=== PATIENT | male | born 1980 | race Caucasian/White ===

== ENCOUNTER 2021-01-30 20:23 | Emergency (ER) | payer OTHER ==
[2021-01-30 20:30] VITALS: TEMP 97.9
[2021-01-30] MEDS ORDERED: SODIUM CHLORIDE 0.9% 500 ML 500 ML IV STA (20:58)
[2021-01-30] MEDS ORDERED: methylPREDNISolone SOD SUCCI 125 MG/2 ML VIAL IV STA (20:58)
[2021-01-30] MEDS ORDERED: diphenhydrAMINE 50 MG/ML 1 ML VIAL IVP STA (20:58)
[2021-01-30] MEDS ORDERED: FAMOTIDINE 20 MG/2 ML VIAL IV STA (20:58)
--- NOTE | 2021-01-30 21:13 | ED ---
Skin/Abscess/FB HPI - General Chief complaint: Skin/Abscess/Foreign Body Stated complaint: Swollen Foot, Rash Time Seen by Provider: 01/30/21 20:43 Source: patient Mode of arrival: ambulatory Limitations: no limitations - History of Present Illness Initial comments: Patient is a 40 -year-old male here with complaints of left foot pain, swelling and redness. He is also complaining of a generalized rash that appeared today as well. Patient states he noticed a little bit of redness of his toes and thought he might be developing athletes foot so he was using topical spray. This started about 5 days ago. Patient states since then it has progressed into most of his toes and redness on the top of his foot. Patient states he saw his doctor today and they wanted him to start her on some antibiotics. Patient states over the next few hours he was doing work around his house and then started having some itchiness of his neck. Patient started developing a rash on his torso, neck, back and arms. He states he called his doctor back and he was reexamined a few hours later, he was given Benadryl and Keflex. They instructed him that if the rash was getting worse to come to the ER. Patient states over the past couple hours they feel like the rash has been getting worse over his torso and decided to be seen. He denies any trouble breathing, no shortness of breath, no wheezing. He denies any nausea or vomiting. He states he has no idea what he could be ALLERGIC to. He denies any fevers or chills. He denies any significant pain of his left foot. He has no further complaints at this time. Upon arrival to the ER, his vital signs are stable. - Related Data Home Medications Medication Instructions Recorded Confirmed No Known Home Medications 01/30/21 01/30/21 Allergies Allergy/AdvReac Type Severity Reaction Status Date / Time acetaminophen Allergy Unknown Verified 01/30/21 21:30 [From Darvocet-N] propoxyphene Allergy Unknown Verified 01/30/21 21:30 [From Darvocet-N] Review of Systems ROS Statement: Those systems with pertinent positive or pertinent negative responses have been documented in the HPI. ROS Other: All systems not noted in ROS Statement are negative. Past Medical History Past Medical History: No Reported History History of Any Multi-Drug Resistant Organisms: None Reported Past Surgical History: Appendectomy, Orthopedic Surgery Additional Past Surgical History / Comment(s): skin graft, lt knee Past Psychological History: No Psychological Hx Reported Smoking Status: Former smoker Past Alcohol Use History: None Reported Past Drug Use History: None Reported General Exam - General Exam Comments Initial Comments: GENERAL: Patient is well-developed and well-nourished. Patient is nontoxic and in no acute distress. HEAD: Atraumatic, normocephalic. EYES: Pupils equal round and reactive to light, extraocular movements intact, sclera anicteric, conjunctiva are normal. Eyelids were unremarkable. ENT: TMs normal, nares patent, oropharynx clear without exudates. Moist mucous membranes. NECK: Normal range of motion, supple without lymphadenopathy or JVD. LUNGS: Unlabored respirations. Breath sounds clear to auscultation bilaterally and equal. No wheezes rales or rhonchi. HEART: Regular rate and rhythm without murmurs, rubs or gallops. ABDOMEN: Soft, nontender, normoactive bowel sounds. No guarding, no rebound. No masses appreciated. : Deferred MUSCULOSKELETAL: Normal extremities with adequate strength and normal range of motion, no pitting or edema. No clubbing or cyanosis. NEUROLOGICAL: Patient is alert and oriented x 3. Motor and sensory are also intact. Cranial nerves II through XII grossly intact. Symmetrical smile. Normal speech, normal gait. PSYCH: Normal mood, normal affect. SKIN: Warm, Dry, normal turgor. Patient has a generalized macular papular rash on his torso, neck, arms. This is mildly pruritic, consistent with an ALLERGIC rash. Patient also has some mild cellulitis on the dorsal aspect of his left foot extending into 3 of his toes. No pain with palpation, no warmth. There is some mild swelling to his left foot as well. Limitations: no limitations Course Vital Signs 01/30/21 01/30/21 20:26 21:57 Temperature 97.9 F Pulse Rate 69 66 Respiratory 20 18 Rate Blood Pressure 125/84 128/86 O2 Sat by Pulse 98 100 Oximetry Medical Decision Making - Medical Decision Making Patient is a 40-year-old male here with concerns of a possible infection of the left foot. He is also started having a generalized rash on his torso and arms. He did see his PCP today that started him on Keflex 250 mg 4 times a day for the cellulitis, he also started him on prednisone for the rash. Patient labs were checked today including coags which were all normal. I did give patient IV Benadryl, steroids, Pepcid. He did report improvement in his rash. I discussed the patient he needs to continue with the Keflex for the left foot cellulitis, as well as oral steroids for the rash. He may take Benadryl at nighttime for any further itching. He is in agreement with this plan of care. He is stable for discharge. Return parameters were discussed with the patient he verbalizes understanding. Case discussed with Dr. Linda. - Lab Data Result diagrams: 01/30/21 21:08 01/30/21 21:08 Lab Results 01/30/21 01/30/21 01/30/21 Range/Units 21:08 21:08 21:08 WBC 5.8 (3.8-10.6) k/uL RBC 4.52 (4.30-5.90) m/uL Hgb 14.1 (13.0-17.5) gm/dL Hct 40.8 (39.0-53.0) % MCV 90.3 (80.0-100.0) fL MCH 31.1 (25.0-35.0) pg MCHC 34.5 (31.0-37.0) g/dL RDW 12.5 (11.5-15.5) % Plt Count 153 (150-450) k/uL MPV 7.7 Neutrophils % 61 % Lymphocytes % 25 % Monocytes % 7 % Eosinophils % 4 % Basophils % 1 % Neutrophils # 3.5 (1.3-7.7) k/uL Lymphocytes # 1.5 (1.0-4.8) k/uL Monocytes # 0.4 (0-1.0) k/uL Eosinophils # 0.2 (0-0.7) k/uL Basophils # 0.0 (0-0.2) k/uL PT 10.5 (9.0-12.0) sec INR 1.0 (<1.2) APTT 22.4 (22.0-30.0) sec Sodium 140 (137-145) mmol/L Potassium 4.2 (3.5-5.1) mmol/L Chloride 104 (98-107) mmol/L Carbon Dioxide 30 (22-30) mmol/L Anion Gap 6 mmol/L BUN 21 H (9-20) mg/dL Creatinine 1.01 (0.66-1.25) mg/dL Est GFR (CKD-EPI)AfAm >90 (>60 ml/min/1.73 sqM) Est GFR (CKD-EPI)NonAf >90 (>60 ml/min/1.73 sqM) Glucose 83 (74-99) mg/dL Calcium 9.4 (8.4-10.2) mg/dL Total Bilirubin 0.3 (0.2-1.3) mg/dL AST 25 (17-59) U/L ALT 24 (4-49) U/L Alkaline Phosphatase 52 (38-126) U/L C-Reactive Protein 10.5 H (<10.0) mg/L Total Protein 7.0 (6.3-8.2) g/dL Albumin 4.3 (3.5-5.0) g/dL Disposition Clinical Impression: Cellulitis of foot, left, Rash due to allergy Disposition: HOME SELF-CARE Condition: Stable Instructions (If sedation given, give patient instructions): Cellulitis (ED) Additional Instructions: Please return to the Emergency Department if symptoms worsen or any other concerns. Continue with Keflex for the cellulitis on the left foot. Start the oral steroids tomorrow for the rash, may take Benadryl at nighttime. Follow-up with your regular doctor. Is patient prescribed a controlled substance at d/c from ED?: No Referrals: Pascual Adams DO [Primary Care Provider] - 1-2 days
[2021-01-30 21:15] LABS: Basophils % (A) 1 %; Eosinophils # (A) 0.2 k/uL (0-0.7); Eosinophils % (A) 4 %; HCT 40.8 % (39.0-53.0); HGB 14.1 gm/dL (13.0-17.5); Lymphocytes # (A) 1.5 k/uL (1.0-4.8); Lymphocytes % (A) 25 %; MCH 31.1 pg (25.0-35.0); MCHC 34.5 g/dL (31.0-37.0); MCV 90.3 fL (80.0-100.0); Mean Platelet Volume 7.7; Monocytes # (A) 0.4 k/uL (0-1.0); Monocytes % (A) 7 %; Neutrophils # (A) 3.5 k/uL (1.3-7.7); Neutrophils % (A) 61 %; Platelet Count 153 k/uL (150-450); RBC 4.52 m/uL (4.30-5.90); RDW 12.5 % (11.5-15.5); WBC 5.8 k/uL (3.8-10.6)
[2021-01-30 21:23] LABS: Partial Thromboplastin Time 22.4 sec (22.0-30.0); Prothrombin Time 10.5 sec (9.0-12.0)
[2021-01-30 21:55] LABS: ALT 24 U/L (4-49); AST 25 U/L (17-59); African American GFR (CKD) >90 (>60 ml/min/1.73 sqM); Albumin 4.3 g/dL (3.5-5.0); Alkaline Phosphatase 52 U/L (38-126); Anion Gap 6 mmol/L; Blood Urea Nitrogen 21 mg/dL (9-20); C Reactive Protein 10.5 mg/L (<10.0); Calcium 9.4 mg/dL (8.4-10.2); Carbon Dioxide 30 mmol/L (22-30); Chloride 104 mmol/L (98-107); Glucose 83 mg/dL (74-99); Non-African American GFR(CKD) >90 (>60 ml/min/1.73 sqM); Potassium 4.2 mmol/L (3.5-5.1); Sodium 140 mmol/L (137-145); Total Bilirubin 0.3 mg/dL (0.2-1.3)
[2021-01-30 21:58] VITALS: RESP 18
[2021-01-30 22:26] VITALS: BP 116/89; PULSE 68
== END 2021-01-30 22:24 | disposition home or self-care (01) ==
LOC: EC 20:23
DX: L03.116 Cellulitis of left lower limb (principal); R21 Rash and other nonspecific skin eruption; T78.40XA Allergy, unspecified, initial encounter; Z87.891 Personal history of nicotine dependence; Z88.6 Allergy status to analgesic agent; Z88.8 Allergy status to other drugs, medicaments and biological substances
CPT/HCPCS: 36415; 80053; 85025; 85610; 85730; 86140; 99283; 96374; 96375 ×2; J1200; J2930

== ENCOUNTER 2021-10-13 13:40 | Emergency (ER) | payer OTHER ==
[2021-10-13 14:08] VITALS: BP 118/71; PULSE 98; RESP 20; TEMP 98.7
[2021-10-13] MEDS ORDERED: SODIUM CHLORIDE 0.9% 1,000 ML IV STA (15:26)
--- NOTE | 2021-10-13 15:49 | ED ---
General Adult HPI - General Chief complaint: Nausea/Vomiting/Diarrhea Stated complaint: Abdominal Pain Time Seen by Provider: 10/13/21 15:01 Source: patient Mode of arrival: ambulatory Limitations: no limitations - History of Present Illness Initial comments: Dictation was produced using [employer] dictation software. please excuse any grammatical, word or spelling errors. Chief Complaint: 41-year-old male presents to the emergency department for nausea, episode of vomiting, left lower quadrant abdominal pain and diarrhea History of Present Illness: 41-year-old male he denies any significant past medical history. He is here in the emergency department for worsening abdominal pain nausea vomiting and diarrhea. He states he has pain in his left lower quadrant and suprapubic area. States that his diarrhea is yellow. Had one ep isode of emesis that was bilious. No blood. Denies any fevers but he does complain of body aches. Denies any history of diverticulitis. Patient is believing that he got food poisoning. He bought some fried entre from [employer] which he ate prior to the onset of his symptoms. States that the pain is left lower quadrant. Nonradiating. He states that it is dull in nature. History of appendectomy. The ROS documented in this emergency department record has been reviewed and confirmed by me. Those systems with pertinent positive or negative responses have been documented in the HPI. All other systems are other negative and/or noncontributory. PHYSICAL EXAM: General Impression: Alert and oriented x3, not in acute distress HEENT: Normocephalic atraumatic, extra-ocular movements intact, pupils equal and reactive to light bilaterally, mucous membranes moist. Cardiovascular: Heart regular rate and rhythm Chest: Able to complete full sentences, no retractions, no tachypnea Abdomen: abdomen soft, tenderness to palpation in the suprapubic left lower quadrant area non-distended, no organomegaly Musculoskeletal: Pulses present and equal in all extremities, no peripheral edema Motor: no focal deficits noted Neurological: CN II-XII grossly intact, no focal motor or sensory deficits noted Skin: Intact with no visualized rashes Psych: Normal affect and mood ED course: 41 y Old male presents with left lower quadrant abdominal pain and GI symptoms since yesterday. vital signs upon arrival are within acceptable limits. Coronal virus is negative. To evaluation obtained. CBC, metabolic panel is unremarkable. Computed tomography scan shows inflammation to the right colon from the cecum to the hepatic flexure. No signs of diverticular disease or diverticulitis. Patient reevaluated at bedside 5:20 PM. He is told that he has inflammatory signs on his computed tomography scan to his right colon. Told that the differential includes inflammatory bowel disease versus gastroenteritis. Been pain medications, antidiarrheal medicines. Patient also given referral to GI doctor for symptoms are improved. Return precautions discussed. A rehana Leach member at the bedside are agreeable. - Related Data Previous Rx's Medication Instructions Recorded Azithromycin [Zithromax Z-pack] 0 mg PO DIRECTED #6 tab 10/13/21 traMADol HCL 50 mg PO TID PRN #12 tablet 10/13/21 Allergies Allergy/AdvReac Type Severity Reaction Status Date / Time acetaminophen Allergy Unknown Verified 10/13/21 14:08 [From Darvocet-N] propoxyphene Allergy Unknown Verified 10/13/21 14:08 [From Darvocet-N] Review of Systems ROS Statement: Those systems with pertinent positive or pertinent negative responses have been documented in the HPI. ROS Other: All systems not noted in ROS Statement are negative. Past Medical History Past Medical History: No Reported History History of Any Multi-Drug Resistant Organisms: None Reported Past Surgical History: Appendectomy, Orthopedic Surgery Additional Past Surgical History / Comment(s): skin graft, lt knee Past Psychological History: No Psychological Hx Reported Smoking Status: Former smoker Past Alcohol Use History: None Reported Past Drug Use History: None Reported General Exam Limitations: no limitations Course Vital Signs 10/13/21 14:05 Temperature 98.7 F Pulse Rate 98 Respiratory 20 Rate Blood Pressure 118/71 O2 Sat by Pulse 99 Oximetry Medical Decision Making - Lab Data Result diagrams: 10/13/21 15:45 10/13/21 15:45 Lab Results 10/13/21 10/13/21 10/13/21 Range/Units 14:11 15:45 15:45 WBC 8.6 (3.8-10.6) k/uL RBC 4.83 (4.30-5.90) m/uL Hgb 15.3 (13.0-17.5) gm/dL Hct 42.1 (39.0-53.0) % MCV 87.2 (80.0-100.0) fL MCH 31.8 (25.0-35.0) pg MCHC 36.5 (31.0-37.0) g/dL RDW 12.3 (11.5-15.5) % Plt Count 150 (150-450) k/uL MPV 7.7 Neutrophils % 92 % Lymphocytes % 4 % Monocytes % 2 % Eosinophils % 1 % Basophils % 0 % Neutrophils # 7.9 H (1.3-7.7) k/uL Lymphocytes # 0.4 L (1.0-4.8) k/uL Monocytes # 0.2 (0-1.0) k/uL Eosinophils # 0.1 (0-0.7) k/uL Basophils # 0.0 (0-0.2) k/uL Sodium 135 L (137-145) mmol/L Potassium 3.7 (3.5-5.1) mmol/L Chloride 101 (98-107) mmol/L Carbon Dioxide 23 (22-30) mmol/L Anion Gap 11 mmol/L BUN 18 (9-20) mg/dL Creatinine 1.11 (0.66-1.25) mg/dL Est GFR (CKD-EPI)AfAm >90 (>60 ml/min/1.73 sqM) Est GFR (CKD-EPI)NonAf 81 (>60 ml/min/1.73 sqM) Glucose 123 H (74-99) mg/dL Plasma Lactic Acid Andrzej (0.7-2.0) mmol/L Calcium 9.6 (8.4-10.2) mg/dL Total Bilirubin 0.7 (0.2-1.3) mg/dL AST 33 (17-59) U/L ALT 40 (4-49) U/L Alkaline Phosphatase 52 (38-126) U/L Total Protein 7.5 (6.3-8.2) g/dL Albumin 4.2 (3.5-5.0) g/dL Coronavirus (PCR) Not Detected (Not Detectd) 10/13/21 Range/Units 15:45 WBC (3.8-10.6) k/uL RBC (4.30-5.90) m/uL Hgb (13.0-17.5) gm/dL Hct (39.0-53.0) % MCV (80.0-100.0) fL MCH (25.0-35.0) pg MCHC (31.0-37.0) g/dL RDW (11.5-15.5) % Plt Count (150-450) k/uL MPV Neutrophils % % Lymphocytes % % Monocytes % % Eosinophils % % Basophils % % Neutrophils # (1.3-7.7) k/uL Lymphocytes # (1.0-4.8) k/uL Monocytes # (0-1.0) k/uL Eosinophils # (0-0.7) k/uL Basophils # (0-0.2) k/uL Sodium (137-145) mmol/L Potassium (3.5-5.1) mmol/L Chloride (98-107) mmol/L Carbon Dioxide (22-30) mmol/L Anion Gap mmol/L BUN (9-20) mg/dL Creatinine (0.66-1.25) mg/dL Est GFR (CKD-EPI)AfAm (>60 ml/min/1.73 sqM) Est GFR (CKD-EPI)NonAf (>60 ml/min/1.73 sqM) Glucose (74-99) mg/dL Plasma Lactic Acid Andrzej 1.1 (0.7-2.0) mmol/L Calcium (8.4-10.2) mg/dL Total Bilirubin (0.2-1.3) mg/dL AST (17-59) U/L ALT (4-49) U/L Alkaline Phosphatase (38-126) U/L Total Protein (6.3-8.2) g/dL Albumin (3.5-5.0) g/dL Coronavirus (PCR) (Not Detectd) Disposition Clinical Impression: Bowel disease, inflammatory Disposition: HOME SELF-CARE Condition: Fair Instructions (If sedation given, give patient instructions): Enteritis (ED) Prescriptions: traMADol HCL 50 mg PO TID PRN #12 tablet PRN Reason: Pain Azithromycin [Zithromax Z-pack] 0 mg PO DIRECTED #6 tab Is patient prescribed a controlled substance at d/c from ED?: Yes If prescribed controlled substance>3 days was MAPS reviewed?: Prescribed <3 Days Referrals: Maryann Akhtar MD [STAFF PHYSICIAN] - 1-2 days
[2021-10-13 15:53] LABS: Basophils % (A) 0 %; Eosinophils # (A) 0.1 k/uL (0-0.7); Eosinophils % (A) 1 %; HCT 42.1 % (39.0-53.0); HGB 15.3 gm/dL (13.0-17.5); Lymphocytes # (A) 0.4 k/uL (1.0-4.8); Lymphocytes % (A) 4 %; MCH 31.8 pg (25.0-35.0); MCHC 36.5 g/dL (31.0-37.0); MCV 87.2 fL (80.0-100.0); Mean Platelet Volume 7.7; Monocytes # (A) 0.2 k/uL (0-1.0); Monocytes % (A) 2 %; Neutrophils # (A) 7.9 k/uL (1.3-7.7); Neutrophils % (A) 92 %; Platelet Count 150 k/uL (150-450); RBC 4.83 m/uL (4.30-5.90); RDW 12.3 % (11.5-15.5); WBC 8.6 k/uL (3.8-10.6)
[2021-10-13 16:24] LABS: ALT 40 U/L (4-49); AST 33 U/L (17-59); African American GFR (CKD) >90 (>60 ml/min/1.73 sqM); Albumin 4.2 g/dL (3.5-5.0); Alkaline Phosphatase 52 U/L (38-126); Anion Gap 11 mmol/L; Blood Urea Nitrogen 18 mg/dL (9-20); Calcium 9.6 mg/dL (8.4-10.2); Carbon Dioxide 23 mmol/L (22-30); Chloride 101 mmol/L (98-107); Glucose 123 mg/dL (74-99); Non-African American GFR(CKD) 81 (>60 ml/min/1.73 sqM); Potassium 3.7 mmol/L (3.5-5.1); Sodium 135 mmol/L (137-145); Total Bilirubin 0.7 mg/dL (0.2-1.3); Total Protein 7.5 g/dL (6.3-8.2)
--- NOTE | 2021-10-13 17:05 | CT ---
EXAMINATION TYPE: CT abdomen pelvis w con DATE OF EXAM: 10/13/2021 COMPARISON: None HISTORY: Left sided abdominal pain CT DLP: 1210.1 mGycm Automated exposure control for dose reduction was used. CONTRAST: Performed with IV Contrast, patient injected with 100 mL of Isovue 300. Lung bases are clear. There is no pleural effusion. Heart size is normal. There is no pericardial eff usion. There is small hiatal hernia. Liver and spleen are intact. There is no pancreatic mass. Gallbl adder is large and measures 4.5 x 8.6 cm. The bile ducts are not dilated. There is no adrenal mass. Kidneys show satisfactory contrast opacification. There is no hydronephrosi s. There is 2 cm cortical cyst in the interpolar right kidney. Delayed images show normal renal excre tion. Ureters are not dilated. Bladder distends smoothly. There is no inguinal hernia. There is tiny amount of free fluid in the pelvis. There is fluid in the right paracolic gutter. There is long segment of right colon with wall thickening. This extends from the cecum to the hepatic flexure. Appendix not definitely seen. No sign of thickened appendix. The lumbar vertebra have normal alignment. The bony pelvis is intact. Hip joints are intact. IMPRESSION: Right colon wall thickening that is consistent with inflammatory bowel disease. There is adjacent rodriguez e fluid. Also some free fluid in the pelvis. No evidence of any significant diverticular disease.
[2021-10-13] MEDS ORDERED: traMADol 50 MG STARTER PACK 3 TAB BTL PO STA (17:23)
[2021-10-13] MEDS ORDERED: DIPHENOX-ATROP STARTER PACK 8 TAB BTL PO STA (17:23)
== END 2021-10-13 18:24 | disposition home or self-care (01) ==
LOC: EC 13:40
DX: K63.89 Other specified diseases of intestine (principal); Z87.891 Personal history of nicotine dependence
CPT/HCPCS: 36415; 80053; 83605; 85025; 87635; 74177; 99284; 96360; 96361; Q9967

== ENCOUNTER → 2022-01-12 | Outpatient (CLI) | payer OTHER ==
--- NOTE | 2022-01-12 11:44 | XR ---
EXAMINATION TYPE: XR knee complete RT DATE OF EXAM: 01/12/2022 CLINICAL HISTORY: pain TECHNIQUE: Three views of the right knee are obtained. COMPARISON: None. FINDINGS: There is no acute fracture/dislocation. The tri-compartment joint spaces appear within no rmal limits. The overlying soft tissue appears unremarkable. IMPRESSION: There is no acute fracture or dislocation.ICD 10 NO FRACTURE, INITIAL EVALUATION
== END | disposition home or self-care (01) ==
LOC: RADXRYALE 11:05
PROVIDERS: ATTEND Family Medicine
DX: M25.561 Pain in right knee (principal)

== ENCOUNTER → 2022-09-05 | Outpatient (CLI) | payer OTHER ==
--- NOTE | 2022-09-05 12:42 | US ---
EXAMINATION TYPE: US scrotum with doppler. Grayscale and color Doppler Duplex imaging performed of t zaynab scrotum. DATE OF EXAM: 09/05/2022 COMPARISON: NONE CLINICAL HISTORY: N50.82 SCROTAL PAIN. Left scrotal pain for 5 days. EXAM MEASUREMENTS: TESTICLES: Right Testicle: 4.1 x 2.4 x 2.7 cm Left Testicle: 41 x 2.5 x 2.7 cm EPIDIDYMIS HEAD: Right Epididymis: 0.7 cm Left Epididymis: 0.8 cm Doppler performed to assess for testicular vascularity; good bilateral color flow and waveforms are s een. There is no evidence of testicular torsion. Presence of hydroceles: No Presence of varicoceles: Slight prominence of left scrotal vessels, without increase in size during valsalva maneuver. Bilateral epididymis heterogeneous appearance consistent with history of vasectomy. IMPRESSION: 1. No evidence of testicular torsion or mass. 2. Prominence of the left scrotal vessels without increase in size during Valsalva maneuver to sugge st varicocele.
== END | disposition home or self-care (01) ==
LOC: RADUSWWP 11:57
PROVIDERS: ATTEND Family Medicine
DX: N50.82 Scrotal pain (principal)
CPT/HCPCS: 76870; 93975